=== PATIENT | female | born 1980 | race Caucasian/White ===

== ENCOUNTER 2021-12-22 05:48 | Observation (INO) ==
[2021-12-15 12:28] LABS: Basophils # 0.1 10*3/uL (0.0-0.2); Basophils % 0.9 % (0.0-0.8); Eosinophils # 0.1 10*3/uL (0.0-0.87); Eosinophils % 2.3 % (0.00-10.9); Hematocrit 43.3 VOL% (35.7-47.0); Hemoglobin 14.3 GM/DL (12.0-16.0); Immature Granulocytes % 0.2 %; Immature Granulocytes Absolute 0.01 #; Lymphocytes # 1.5 10*3/uL (1.4-4.0); Lymphocytes % 28.4 % (21.3-54.2); Mean Corpuscular Volume 93.9 FL (87-102); Mean Platelet Volume 12.3 FL (9.6-12.0); Monocytes # 0.4 10*3/uL (0.11-0.8); Neutrophils % 61.2 % (38.7-73.9); Platelet Count 255 T/CUMM (130-400); Red Blood Count 4.61 MC/CUMM (3.8-5.5); Red Cell Distribution Width 13.1 % (9.3-17.3); White Blood Count 5.3 T/CUMM (4-12)
[2021-12-15 12:38] LABS: Calcium 9.3 MG/DL (8.5-10.1); Osmolality,Calculated 281.3 MOS/KG (273-304); Potassium 3.9 MMOL/L (3.5-5.1)
[2021-12-15 12:50] LABS: Free T4 (Free Thyroxine) 0.85 NG/DL (0.76-1.46); Thyroid Stimulating Hormone 0.728 uIU/ml (0.358-3.74)
[2021-12-22] MEDS ORDERED: fentaNYL 100 MCG/2 ML VIAL ONE (06:18)
[2021-12-22] MEDS ORDERED: LIDOCAINE 2% 5 ML VIAL ONE (06:18)
[2021-12-22] MEDS ORDERED: propofoL 200 MG/20 ML VIAL IV ONE (06:18)
[2021-12-22] MEDS ORDERED: MIDAZOLAM 2 MG/2 ML VIAL ONE (06:18)
[2021-12-22] MEDS ORDERED: SUCCINYLCHOLINE 200 MG/10 ML VIAL ONE (06:18)
[2021-12-22] MEDS: LACTATED RINGERS 1,000 ML IV SCH ×2 (06:30→13:00)
[2021-12-22] MEDS ORDERED: BUPIVACAINE MPF 0.25% 10 ML VIAL ONE (06:53)
[2021-12-22] MEDS ORDERED: LIDOCAINE 2%/EPI 20 ML VIAL ONE (06:53)
[2021-12-22] MEDS ORDERED: TISSUE ADHESIVE 1 EACH APPLICATOR TOP ONE (06:53)
[2021-12-22] MEDS ORDERED: FAMOTIDINE 20 MG/2 ML VIAL IV ONE (07:15)
[2021-12-22] MEDS ORDERED: SEVOFLURANE 1 UNIT/15 MINUTE INH ONE ×2 (08:09→09:39)
[2021-12-22] MEDS ORDERED: ePHEDrine 50 MG/ML VIAL ONE (08:09)
[2021-12-22] MEDS ORDERED: ONDANSETRON 4 MG/2 ML VIAL ONE (09:23)
[2021-12-22] MEDS ORDERED: HYDROmorphone 1 MG/1 ML SYRINGE ONE (09:23)
[2021-12-22] MEDS: HYDROmorphone 1 MG/1 ML SYRINGE IV PRN ×4 (09:30→22:00)
[2021-12-22] MEDS ORDERED: ONDANSETRON 4 MG/2 ML VIAL IV PRN ×2 (09:34→09:36)
[2021-12-22] MEDS ORDERED: HYDROmorphone 1 MG/1 ML SYRINGE IV STA ×2 (10:19→12:36)
[2021-12-22] MEDS ORDERED: KETOROLAC 15 MG/1 ML VIAL IV STA (12:35)
[2021-12-22] MEDS ORDERED: KETOROLAC 15 MG/1 ML VIAL ONE (12:38)
[2021-12-22] MEDS ORDERED: INFLUENZA VIRUS VACCINE 0.5 ML SYRINGE IM ONE (16:31)
[2021-12-22] MEDS: KETOROLAC 15 MG/1 ML VIAL IV SCH (18:16)
[2021-12-23] MEDS: KETOROLAC 15 MG/1 ML VIAL IV SCH ×4 (00:08→17:20)
[2021-12-23] MEDS: HYDROmorphone 1 MG/1 ML SYRINGE IV PRN ×4 (01:15→22:28)
[2021-12-23] MEDS: LACTATED RINGERS 1,000 ML IV SCH (07:20)
[2021-12-23] MEDS ORDERED: LIDOCAINE 2%/EPI 20 ML VIAL ONE (09:28)
[2021-12-23] MEDS ORDERED: BUPIVACAINE MPF 0.25% 10 ML VIAL ONE (09:28)
[2021-12-23] MEDS ORDERED: ONDANSETRON 4 MG/2 ML VIAL ONE (09:32)
[2021-12-23] MEDS ORDERED: SUCCINYLCHOLINE 200 MG/10 ML VIAL ONE (09:32)
[2021-12-23] MEDS ORDERED: propofoL 200 MG/20 ML VIAL IV ONE (09:32)
[2021-12-23] MEDS ORDERED: LIDOCAINE 2% 5 ML VIAL ONE (09:32)
[2021-12-23] MEDS ORDERED: ROCURONIUM 50 MG/5 ML VIAL IV ONE (09:32)
[2021-12-23] MEDS ORDERED: fentaNYL 100 MCG/2 ML VIAL ONE (09:33)
[2021-12-23] MEDS ORDERED: MIDAZOLAM 2 MG/2 ML VIAL ONE (09:33)
[2021-12-23] MEDS ORDERED: TISSUE ADHESIVE 1 EACH APPLICATOR TOP ONE ×2 (09:50→10:26)
[2021-12-23] MEDS ORDERED: SEVOFLURANE 1 UNIT/15 MINUTE INH ONE (09:55)
[2021-12-23] MEDS ORDERED: PHENYLEPHRINE 1 MG/10 ML SYRINGE IV ONE (09:55)
[2021-12-23] MEDS ORDERED: GLYCOPYRROLATE 0.4 MG/2 ML VIAL ONE (09:59)
[2021-12-23] MEDS ORDERED: SUGAMMADEX 200 MG/2 ML VIAL IV ONE (10:07)
[2021-12-23] MEDS ORDERED: LACTATED RINGERS 1,000 ML IV ONE (10:09)
[2021-12-23] MEDS ORDERED: DEXMEDETOMIDINE 200 MCG/2 ML VIAL ONE (10:17)
[2021-12-23] MEDS ORDERED: ONDANSETRON 4 MG/2 ML VIAL IV PRN (10:54)
[2021-12-23] MEDS ORDERED: HYDROmorphone 1 MG/1 ML SYRINGE IV PRN (10:54)
[2021-12-24] MEDS: HYDROmorphone 1 MG/1 ML SYRINGE IV PRN (02:15)
[2021-12-24] MEDS: KETOROLAC 15 MG/1 ML VIAL IV SCH ×2 (03:59→05:31)
[2021-12-24 08:14] VITALS: BP 125/68
[2021-12-24] MEDS ORDERED: BUDESONIDE/FORMOTEROL 80-4.5 INHALER 6.9 GM INH PRN (08:54)
[2021-12-24] MEDS ORDERED: POTASSIUM CHLORIDE 20 MEQ TABLET PO SCH (09:00)
[2021-12-24] MEDS ORDERED: FLUoxetine 20 MG CAPSULE PO SCH (09:00)
[2021-12-24] MEDS ORDERED: FUROSEMIDE 40 MG TABLET PO SCH (09:00)
[2021-12-24] MEDS ORDERED: ALBUTEROL 2.5 MG/3 ML NEB RESP TX PRN (09:05)
[2021-12-24] MEDS ORDERED: PRAZOSIN 1 MG CAPSULE PO SCH (21:00)
[2021-12-24] MEDS ORDERED: levETIRAcetam 500 MG TABLET PO SCH (21:00)
[2021-12-25] MEDS ORDERED: TOPIRAMATE 100 MG TABLET PO SCH (09:00)
== END 2021-12-24 10:40 | disposition home or self-care (01) ==
LOC: N.OR 05:48 → N.2W 05:48 → N.SDSINP 05:48 → N.2W 16:10
PROVIDERS: ADMIT Surgery; ATTEND Surgery